=== PATIENT | male | born 1980 | race Hispanic/Latino ===

== ENCOUNTER 2017-05-21 14:23 | Emergency (ER) | payer MEDICAID ==
[2017-05-21 14:46] VITALS: BP 133/64; PULSE 60; RESP 16; TEMP 98.3; O2SAT 98
--- NOTE | 2017-05-21 16:40 | ED PDOC ---
HPI: General Adult Time Seen by Provider: 05/21/17 15:04 Chief Complaint (Nursing): Abnormal Skin Integrity Chief Complaint (Provider): Medical evaluation History Per: Patient History/Exam Limitations: no limitations Onset/Duration Of Symptoms: Persistent Current Symptoms Are (Timing): Still Present Additional Complaint(s): Richie Soto is a 36 y/o male presenting to the ER on 05/21/2017 for evaluation of a lump to his left neck that he notes has been present for the past 5 years. He denies any pain, and states that he only really started to notice it after he intentionally lost approximtely 30 pounds. He states that his sister was recently diagnosed with breast cancer, and has been encouraging her family to seek medical evaluation. He denies any associated cough, nasal congestion, throat pain, dyspnea, fever, or changes in the lump. Past Medical History Reviewed: Historical Data, Nursing Documentation, Vital Signs Vital Signs: Last Vital Signs Temp 98.3 F 05/21/17 14:44 Pulse 60 05/21/17 14:44 Resp 16 05/21/17 14:44 BP 133/64 05/21/17 14:44 Pulse Ox 98 05/21/17 16:59 - Medical History PMH: No Chronic Diseases Denies: Chronic Kidney Disease - Surgical History Surgical History: No Surg Hx - Family History Family History: States: Unknown Family Hx - Social History Current smoker - smoking cessation education provided: No Alcohol: None Drugs: Denies - Home Medications Home Medications: Ambulatory Orders Medication Instructions Recorded DiphenhydrAMINE [Benadryl] 25 mg PO Q6 #20 cap 02/06/17 predniSONE [Prednisone] 40 mg PO DAILY #8 tab 02/06/17 Naproxen [Naprosyn] 500 mg PO BID PRN #20 tablet 05/21/17 - Allergies Allergies/Adverse Reactions: Allergies Allergy/AdvReac Type Severity Reaction Status Date / Time No Known Allergies Allergy Unverified 02/06/17 13:47 Review of Systems ROS Statement: Except As Marked, All Systems Reviewed And Found Negative Constitutional: Negative for: Fever ENT: Negative for: Nose Congestion, Throat Pain Respiratory: Negative for: Cough, Shortness of Breath, SOB with Exertion, Wheezing Physical Exam - Reviewed Nursing Documentation Reviewed: Yes Vital Signs Reviewed: Yes - Physical Exam Appears: Positive for: Non-toxic, No Acute Distress Head Exam: Positive for: ATRAUMATIC, NORMOCEPHALIC Skin: Positive for: Normal Color. Negative for: Rash Eye Exam: Positive for: Normal appearance, EOMI, PERRL ENT: Positive for: Normal ENT Inspection, Pharynx Is (patent ) Neck: Positive for: Normal (subcutaneous, non-indurated & non-tender pea sized lump to left anterior neck w/ no overlying erythema), Painless ROM, Supple Cardiovascular/Chest: Positive for: Regular Rate, Rhythm. Negative for: Murmur Respiratory: Positive for: Normal Breath Sounds. Negative for: Respiratory Distress Extremity: Positive for: Normal ROM. Negative for: Deformity, Swelling Lymphatic: Positive for: Normal Exam. Negative for: Adenopathy - ECG O2 Sat by Pulse Oximetry: 98 Pulse Ox Interpretation: Normal Medical Decision Making Medical Decision Makin:04 Initial Impression- 36 y/o male with mass on left-side of neck Pt declined to have XR of neck performed in the ED. Pt requires no further treatment at this time and is stable for routine discharge. Pt will be given Rx for Naprosyn and was advised to schedule a follow-up with Dr. Zhang or a field service poultry technician of his choice. He was advised that lump appears to be consistent with a lipoma. He was advised to return to the ED for any worsening or change in symptoms. Documented by Sahra Babcock, acting as a scribe for Renee Hough PA-C All medical record entries made by the Scribe were at my direction and personally dictated by me. I have reviewed the chart and agree that the record accurately reflects my personal performance of the history, physical exam, medical decision making, and the department course for this patient. I have also personally directed, reviewed, and agree with the discharge instructions and disposition. Disposition - Clinical Impression Clinical Impression: Neck pain, Lipoma - Patient ED Disposition Is Patient to be Admitted: No Counseled Patient/Family Regarding: Diagnosis, Need For Followup, Rx Given (He actually went) - Disposition Referrals: Fredo Zhang MD [Staff Provider] - Disposition: Routine/Home Disposition Time: 16:44 Condition: STABLE Additional Instructions: Follow up with [facility], or Dr. Zhang-surgeon. Take Tylenol/ Ibuprofen for pain, and return for any worsening or change in symptoms. Prescriptions: Naproxen [Naprosyn] 500 mg PO BID PRN #20 tablet PRN Reason: Pain, Moderate (4-7) Instructions: Lipoma (ED) Forms: [facility] (Lao)
== END 2017-05-21 16:48 | disposition home or self-care (01) ==
LOC: H.ER 14:23
DX: M54.2 Cervicalgia (principal); D17.9 Benign lipomatous neoplasm, unspecified